=== PATIENT | female | born 1985 | race American Indian/Alaskan Native ===

== ENCOUNTER 2017-01-02 07:49 | Emergency (ER) | payer SELFPAY ==
[2017-01-02 08:04] VITALS: BP 163/108
[2017-01-02] MEDS ORDERED: CATAPRES ONE (08:05)
[2017-01-02] MEDS ORDERED: CATAPRES PO ONE (08:13)
[2017-01-02 09:26] LABS: Anion Gap 16 mmol/L; BUN/Creatinine Ratio 17.14; Blood Urea Nitrogen 12 mg/dL (7-17); Calcium 8.9 mg/dL (8.4-10.2); Carbon Dioxide 24 mmol/L (22-30); Chloride 99.3 mmol/L (98-107); Glucose 96 mg/dL (65-100); Potassium 3.9 mmol/L (3.6-5.0); Sodium 135 mmol/L (137-145)
[2017-01-02 09:32] LABS: Basophils % (Auto) 0.4 % (0.0-1.8); Eosinophils % (Auto) 1.7 % (0.0-4.3); Hematocrit 34.8 % (30.3-42.9); Hemoglobin 11.2 gm/dl (10.1-14.3); Mean Corpuscular HGB Conc 32 % (30-34); Mean Corpuscular Volume 73 fl (79-97); Platelet Count 301 K/mm3 (140-440); Red Blood Count 4.75 M/mm3 (3.65-5.03); Red Cell Distribution Width 17.3 % (13.2-15.2); White Blood Count 10.5 K/mm3 (4.5-11.0)
[2017-01-02 09:37] LABS: Mean Corpuscular Hemoglobin 24 pg (28-32)
== END 2017-01-02 14:53 | disposition left against medical advice (07) ==
LOC: ED 07:49
DX: R03.0 Elevated blood-pressure reading, without diagnosis of hypertension (principal); R42 Dizziness and giddiness; Z53.21 Procedure and treatment not carried out due to patient leaving prior to being seen by health care provider
CPT/HCPCS: 36415; 80048; 81025; 84484; 85025; 93005; 93010